=== PATIENT | female | born 1990 | race Two or more races ===

== ENCOUNTER 2016-03-09 19:31 | Emergency (ER) | payer OTHER ==
[~2016-03-09] VITALS: Ht 152.4 cm; Wt 63.0 kg
[2016-03-09 23:54] VITALS: BP 110/70
[2016-03-10 11:44] LABS: Hepatitis B Surface Antibody Positive
== END 2016-03-10 00:31 | disposition home or self-care (01) ==
LOC: ER 19:37
DX: S61.211A Laceration without foreign body of left index finger without damage to nail, initial encounter (principal); Z77.21 Contact with and (suspected) exposure to potentially hazardous body fluids; W45.8XXA Other foreign body or object entering through skin, initial encounter; Y93.89 Activity, other specified; Y99.0 Civilian activity done for income or pay; Y92.89 Other specified places as the place of occurrence of the external cause
CPT/HCPCS: 36415; 86703; 86706; 86803; 87340